=== PATIENT | female | born 1940 | race Caucasian/White ===

== ENCOUNTER 2020-06-18 21:48 | Observation (INO) | payer MEDICARE, SELFPAY ==
--- NOTE | ~2020-06-18 | XR_ITS ---
EXAMINATION: XR knee RT 3V DATE: 06/18/2020 23:01 INDICATION: Right knee pain after fall, initial encounter TECHNIQUE: Three views of the right knee were obtained. COMPARISON: 06/14/2011 FINDINGS: There is a chronic moth-eaten appearance of the bones. A large knee joint effusion is prese nt. There appears to be an acute, traumatic, closed fracture involving the lateral condyle of the dis josie femur. Calcified atherosclerosis is noted. IMPRESSION: 1. Likely acute lateral condyle fracture of the distal femur with large knee joint effusion. 2. Widespread moth-eaten appearance of the bones, consistent with history of multiple myeloma. Reviewed, dictated and finalized at location A. IMPRESSION: 1. Likely acute lateral condyle fracture of the distal femur with large knee sharif int effusion. 2. Widespread moth-eaten appearance of the bones, consistent with history of mu ltiple myeloma.
--- NOTE | ~2020-06-18 | XR_ITS ---
EXAMINATION: XR hip RT min 2V DATE: 06/18/2020 23:01 INDICATION: Right hip pain after fall, history of multiple myeloma TECHNIQUE: Two views of right hip were obtained. COMPARISON: 06/13/2011 FINDINGS: Again noted is a widespread moth-eaten appearance of the bones. No definite fracture is kvng ntified. Bone alignment is normal. IMPRESSION: 1. No definite fracture identified. 2. Chronic moth-eaten appearance of the bones, consistent with history of multiple myeloma. Reviewed, dictated and finalized at location A. IMPRESSION: 1. No definite fracture identified. 2. Chronic moth-eaten appearance of the bones, consistent with history of multi ple myeloma.
[2020-06-18 22:03] VITALS: PULSE 54; RESP 13; O2SAT 100
[2020-06-18 22:04] VITALS: BP 184/45; PULSE 50; RESP 16; O2SAT 100
[2020-06-18 22:05] VITALS: BP 184/45; PULSE 52; RESP 15; O2SAT 100
--- NOTE | 2020-06-18 22:14 | ED.GENADULT ---
HPI - General Adult General Chief complaint: Fall Stated complaint: FALL/R LEG PAIN/HYPOTENSIVE Source: patient History of Present Illness HPI narrative: Patient is a 80 y/o female complaining of right knee pain after she fell in the shower. She states that it happened about 1 hour ago. She describes her pain as a aching pain and rates it as 10/10. There is no pain radiation. Movement aggravates her pain. She was unable to stand after the fall. She denies hitting her head or having LOC. She denies any neck pain, back pain, chest pain or abdominal pain. Related Data Home Medications Medication Instructions Recorded Confirmed allopurinol 100 mg PO DAILY 06/18/20 06/19/20 bimatoprost [Lumigan] 0.01 % OPHTHALMIC (EYE) DAILY 06/18/20 06/19/20 lenalidomide [Revlimid] 10 mg PO DAILY 06/18/20 06/19/20 potassium chloride 20 meq PO DAILY 06/18/20 06/19/20 timolol [Betimol] 1 drp OPHTHALMIC (EYE) BID 06/18/20 06/19/20 Allergies Allergy/AdvReac Type Severity Reaction Status Date / Time No Known Allergies Allergy Unknown Verified 06/18/20 22:12 Review of Systems Constitutional: Constitutional: Denies chills, Denies fever(s), Denies headache(s) and Denies weakness Eyes: Eyes: Denies blurry vision ENT: Denies headache(s) and Denies neck pain Cardiovascular: Cardiovascular: Denies chest pain and Denies dyspnea Respiratory: Respiratory: Denies cough and Denies dyspnea Gastrointestinal: Gastrointestinal: Denies abdominal pain, Reports diarrhea, Denies nausea and Denies vomiting Genitourinary: Genitourinary: Denies hematuria and Denies dysuria Musculoskeletal: Musculoskeletal: Denies back pain, Reports arthralgias (right knee pain) and Denies neck pain Neurologic: Denies headache(s) and Denies weakness [facility] Past Medical History Medical History (Updated 06/19/20 @ 12:33 by Citlaly Lock MD) Anemia Glaucoma Gout Multiple myeloma Surgical History Surgical History (Updated 06/19/20 @ 12:28 by Ava Guillory PA-C) H/O local excision of skin lesion History of resection of small bowel Status post right breast lumpectomy Family History Family History (Updated 06/19/20 @ 12:29 by Ava Guillory PA-C) Sibling Lung cancer Sibling Lung cancer Social History Social History (Updated 06/19/20 @ 12:32 by Ava Guillory PA-C) Social History: Ms. Baum lives at home with her son, James, in [place]. 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 She denies alcohol use or other substance use. Never smoker. Her PCP is recently retired and she tells me her oncologist, Dr Júnior Knott, is taking over as her PCP for now. She designates her son, James, as her surrogate decision maker. She would like to be resuscitated if needed, however she does not wish to be on a ventilator for a long period of time, thus keeping her Full Code Status. Smoking status: Never smoker Alcohol intake: never Substance use: never Gender identity (if verbalized by the patient): Female Sexual Orientation (if Verbalized by the Patient): Straight or Heterosexual Spiritual care concerns: No Exam Const: General: no acute distress and well developed Orientation/consciousness: oriented to person, oriented to place, oriented to time and patient oriented x3 HENMT: Head: normocephalic Ears: external ears normal General nose exam: Normal external nose present Eyes: General: appearance normal, both eyes and all related structures Conjunctivae: conjunctivae normal Neck: Neck: normal visual inspection and full ROM Chest: Chest palpation & inspection: normal inspection of the chest and no tenderness Resp: Effort & Inspection: normal respiratory effort Auscultation: clear to auscultation bilaterally Cardio: Rate: bradycardic Rhythm: regular rhythm GI: GI Palp: No abdominal tenderness and Yes Soft to palpation Skin: General skin exam: normal color and turgor normal Neuro: General: oriented to perso
[2020-06-18 22:15] VITALS: PULSE 55; RESP 19; O2SAT 100
[2020-06-18 22:17] VITALS: BP 164/47; PULSE 50; RESP 18; O2SAT 100
[2020-06-18] MEDS: fentaNYL CITRATE INJ (*CRX) 100 MCG/2 ML VIAL 50 MCG IV PUSH (22:17)
[2020-06-18 23:35] LABS: Basophils Absolute Auto 0.1 K/mm3 (0.0-0.1); Basophils Percent Auto 1.5 % (0.2-1.2); Eosinophils Absolute Auto 0.1 K/mm3 (0-0.3); Eosinophils Percent Auto 2.2 % (0-4.4); Hematocrit 32.3 % (37.0-47.0); Hemoglobin 10.4 g/dL (12.0-15.0); Immature Granulocyte Absolute 0.02 K/mm3 (0.00-0.031); Immature Granulocyte Percent A 0.5 % (0-0.5); Lymphocytes Absolute Auto 0.85 K/mm3 (0.9-3.2); Lymphocytes Percent Auto 20.6 % (18.3-44.2); Mean Corpuscular HGB Conc 32.2 g/dl (32-36); Mean Corpuscular Hemoglobin 31.5 pg (26-34); Mean Corpuscular Volume 97.9 fl (80-100); Mean Platelet Volume 11.2 fl (7.4-10.4); Monocytes Absolute Auto 0.5 K/mm3 (0.1-0.6); Monocytes Percent Auto 11.4 % (2.6-8.5); Neutrophils Absolute Auto 2.6 K/mm3 (1.3-6.7); Neutrophils Percent Auto 63.8 % (45.5-73.1); Platelet Count Result 249 k/mm3 (150-375); White Blood Count 4.1 K/mm3 (4.5-10.0)
[2020-06-18 23:48] LABS: Alanine Aminotransferase 32 U/L (4-35); Albumin Level 3.2 g/dL (3.5-5.1); Alkaline Phosphatase 105 U/L (38-126); Anion Gap 4 mmol/L (8-16); Aspartate Amino Transferase 63 U/L (14-36); Bilirubin,Total 0.4 mg/dL (0.2-1.3); Blood Urea Nitrogen 35 mg/dL (7-17); Calcium 8.5 mg/dL (8.4-10.2); Carbon Dioxide 23 mmol/L (22-30); Chloride 106 mmol/L (98-107); Estimated CRCL calculation 53 ml/min; Estimated Glomerular Filt Rate > 60; Glucose 147 mg/dL (65-105); Potassium 4.3 mmol/L (3.4-5.0); Sodium 133 mmol/L (137-145)
[2020-06-19] VITALS (7 sets, daily range): BP systolic 113–178; BP diastolic 44–96; PULSE 40–91; RESP 15–21; TEMP 36.2–37; O2SAT 96–99; BMI 33.5; BMI 30.2
[2020-06-19 00:20] LABS: Add Urine Microscopic? YES; Appearance Urine Cloudy (Clear); Bacteria Urine Trace /hpf; Bilirubin Urine Negative (Negative); Blood Urine Negative (Negative); Color Urine Yellow (Yellow); Glucose Urine UA Negative (Negative); Ketones Urine Negative (Negative); Leukocyte Esterase Ur Negative LEU/UL (Negative); Mucus Urine Rare /lpf; Nitrate Urine Negative (Negative); Protein Urine 1+ mg/dL (Negative); RBC Urine 0-2 /hpf (0-2); Specific Grav Ur 1.016 (1.001-1.035); Squamous Epithelial Cell Urine Rare /hpf (Few); Urobilinogen Urine Negative mg/dL (<2.0); WBC Urine 0-3 /hpf
[2020-06-19] MEDS: HYDROcodone/acetaminophen (*CRX) 5-325 MG TABLET 1 TAB PO ×3 (00:31→19:10)
--- NOTE | 2020-06-19 01:59 | ADMGEN ---
This patient, Cristina Baum, was admitted to [facility] Surg Room 303-01. Patient/family oriented to hospital policies and general routines including ID bracelet, bed and alarms, visiting hours, pain management, procedures, bathroom and other care routines, personal items, smoking policy, room service/diet, and visiting hours. Valuables list has been completed. Information on how to activate the Rapid Response Team has been discussed. Patient/Family are encouraged to report perceived risks to care and to ask questions if they do not understand what they are told or what they should do.
[2020-06-19] MEDS: fentaNYL CITRATE INJ (*CRX) 100 MCG/2 ML VIAL 25 MCG IV PUSH (02:13)
[2020-06-19] MEDS: HYDROmorphone HCL INJ (*CRX) 1 MG/ML SYR 0.5 MG IV PUSH ×4 (10:16→17:03)
--- NOTE | 2020-06-19 10:20 | PM.IMHP ---
H&P: HPI History of Present Illness Date/Time: 06/19/20944 Chief complaint: R leg pain Narrative: Date of Service 06/19/20944 The supervising physician for this history and physical is Dr Tristan Lovelace. Ms. Baum is an 80yo F with history of multiple myeloma, anemia, glaucoma, gout presents ED for evaluation of right knee pain after a fall at home. She describes she was stepping out of the bathtub when she slipped and fell on the ledge of the tub. She then began to experience right knee/leg/hip pain and had difficulty ambulating. She lives with her son, James, who she called for help. Imaging demonstrates a likely acute lateral condyle fracture of the right distal femur with a large knee joint effusion with widespread moth-eaten appearance of the bones. She describes that she has had aching pain near her right knee for about 2 weeks now. She follows with oncology at [facility] in [place], Dr Júnior Knott, who recently ordered skeletal survey X-rays due to pain. Today, her only complaint is 10/10 right knee pain. She had some diarrhea this morning which she notes is not abnormal for her after her bowel resection 2 years ago. She denies any chest pain, shortness of breath, palpitations, or calf pain. She denies any nausea, vomiting or abdominal pain. She was admitted to the hospitalist service for right femur fracture. I have spoken with EMANUEL Hull with Dr Mario early this morning who recommends patient transfer to tertiary care for musculoskeletal oncology consultation. I have spoken with patient's oncologist's office who prefers her to transfer to [place], where she has seen Dr Lj Garza in the past. I have spoken with [facility] and Dr Eunice France has accepted the patient in transfer. Review of Systems Review of Systems: Narrative: Right knee pain 10/10, no other complaints. She describes aching in this region for the last 2 weeks. She denies chest pain, shortness of breath, cough, fever or chills at home. Denies sick contacts. No nausea, vomiting or abdominal pain. Having nonbloody loose BM today which is not uncommon for her after bowel resection. Twelve systems were reviewed with pertinent positives and negatives as per HPI. [facility] Past Medical History Medical History (Updated 06/19/20 @ 12:46 by Ava Guillory PA-C) Anemia Glaucoma Gout Multiple myeloma Surgical History Surgical History (Updated 06/19/20 @ 12:28 by Ava Guillory PA-C) H/O local excision of skin lesion History of resection of small bowel Status post right breast lumpectomy Family History Family History (Updated 06/19/20 @ 12:29 by Ava Guillory PA-C) Sibling Lung cancer Sibling Lung cancer Social History Social History (Updated 06/19/20 @ 12:32 by Ava Guillory PA-C) Social History: Ms. Baum lives at home with her son, James, in [place]. 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 She denies alcohol use or other substance use. Never smoker. Her PCP is recently retired and she tells me her oncologist, Dr Júnior Knott, is taking over as her PCP for now. She designates her son, James, as her surrogate decision maker. She would like to be resuscitated if needed, however she does not wish to be on a ventilator for a long period of time, thus keeping her Full Code Status. Smoking status: Never smoker Alcohol intake: never Substance use: never Gender identity (if verbalized by the patient): Female Sexual Orientation (if Verbalized by the Patient): Straight or Heterosexual Spiritual care concerns: No Meds Home Medications and Allergies Home Medications Medication Instructions Recorded Confirmed Type allopurinol 100 mg PO DAILY 06/18/20 06/19/20 History bimatoprost [Lumigan] 0.01 % OPHTHALMIC (EYE) DAILY 06/18/20 06/19/20 History lenalidomide [Revlimid] 10 mg PO DAILY 06/18/20 06/19/20 History potassium chloride 20 meq PO DAILY 06/18/20 06/19/20 History timolol [Bet
--- NOTE | 2020-06-19 12:54 | PM.TDS ---
Transfer Discharge Sum: Prov Provider Date of admission: 06/19/20 00:27 Primary care physician: PHYSICIAN NOT ON STAFF Admitting clinician: Luz Maria Montiel DO Consults: 06/19/20 00:29 Consult to Physician Routine Comment: Consulting Provider: Ernesto Mario Reason for consultation: right distal femur fracture Has provider been notified: Yes DS: Admitting Diagnosis Admitting Diagnosis Admitting Diagnosis: R leg pain DS: Discharge Diagnosis Discharge Diagnosis (1) Closed fracture of lateral condyle of distal end of right femur: Qualifiers: Encounter type: initial encounter Fracture alignment: nondisplaced Qualified Code(s): S72.424A - Nondisplaced fracture of lateral condyle of right femur, initial encounter for closed fracture Code(s): S72.421A - Displaced fracture of lateral condyle of right femur, initial encounter for closed fracture Status: Acute Assessment and Plan: Date of Service 06/19/20 0945 Ms. Baum is an 80yo F with history of multiple myeloma diagnosed in 2010, anemia, glaucoma, gout, history of right breast cancer in 2017, presents ED for evaluation of right knee pain after a fall at home. She describes she was stepping out of the bathtub when she slipped and fell on the ledge of the tub. She then began to experience right knee/leg/hip pain and had difficulty ambulating. She lives with her son, James, who she called for help. Imaging demonstrates a likely acute lateral condyle fracture of the right distal femur with a large knee joint effusion with widespread moth-eaten appearance of the bones. She describes that she has had aching pain near her right knee for about 2 weeks now. She follows with oncology at [facility] in [place], Dr Júnior Knott, who recently ordered skeletal survey X-rays due to pain. Today, her only complaint is 10/10 right knee pain. She had some diarrhea this morning which she notes is not abnormal for her after her bowel resection 2 years ago. She denies any chest pain, shortness of breath, palpitations, or calf pain. No cough, fevers/chills, or sick contacts. She denies any nausea, vomiting or abdominal pain. She was admitted to the hospitalist service for right femur fracture. I have spoken with EMANUEL Hull with Dr Mario early this morning who recommends patient transfer to tertiary care for musculoskeletal oncology consultation. I have spoken with patient's oncologist's office who prefers her to transfer to [place], where she has seen Dr Lj Garza in the past. I have spoken with [facility] and Dr Eunice France has accepted the patient in transfer. She is hemodynamically stable for transfer today. Last Vital Signs Temp 97.2 F L 06/19/20 12:00 Pulse 45 L 06/19/20 12:00 Resp 18 06/19/20 12:00 BP 152/45 H 06/19/20 12:00 Pulse Ox 96 06/19/20 12:00 Patient presents with right knee pain after slipping in the bathtub 06/18 at home. Imaging shows what is likely an acute lateral condyle fracture of the right distal femur with large knee joint effusion, with widespread moth-eaten appearance of the bones. Discussed case with EMANUEL Hull with Dr Mario who has reviewed the imaging and recommends transfer to tertiary care. Appreciate input. Plan is for transfer to [place]. Dr Eunice France, [facility] oncology, has accepted the patient in transfer pending bed availability. (2) Multiple myeloma: Qualifiers: Multiple myeloma remission status: unspecified Qualified Code(s): C90.00 - Multiple myeloma not having achieved remission Code(s): C90.00 - Multiple myeloma not having achieved remission Status: Chronic Assessment and Plan: Diagnosed in 05/2011. Her oncologist is Dr Júnior Knott at [facility]. I've spoken with their office this morning for updates. Continue her home Revlimid if can be brought from home.
[2020-06-19] MEDS: allopurinoL 100 MG TABLET PO (15:31)
--- NOTE | 2020-06-19 17:01 | PHAR ---
Home medication Revlimid 10mg capsules idenfied in pharmacy and returened to 3medsurg unit
[2020-06-19] MEDS: TIMOLOL MALEATE 0.5% OP SOLN 5 ML BOTTLE 1 DROP EACH EYE (17:14)
--- NOTE | 2020-06-19 19:46 | PC.NURSE ---
SENT PT TO [facility] PER AMBULANCE WITH PATENT , CLEAN IV SITE CLEAN
== END 2020-06-19 19:15 | disposition short-term general hospital (02) ==
LOC: ANHED 23:29 → ANH3MEDSUR 06-19 01:47
PROVIDERS: Admitting Provider Internal Medicine; Emergency Provider Emergency Medicine; Visit Provider Family Medicine
DX: S72.421A Displaced fracture of lateral condyle of right femur, initial encounter for closed fracture (principal); M25.552 Pain in left hip; M25.461 Effusion, right knee; W18.2XXA Fall in (into) shower or empty bathtub, initial encounter; C90.00 Multiple myeloma not having achieved remission; R00.1 Bradycardia, unspecified; M10.9 Gout, unspecified; H40.9 Unspecified glaucoma; Z85.3 Personal history of malignant neoplasm of breast; Z90.49 Acquired absence of other specified parts of digestive tract
CPT/HCPCS: 36415; 73502; 73562; 80053; 81001; 85025; 96374; 96375; 96376; 99285; A9270; G0378; J1170; J3010

== ENCOUNTER 2020-07-21 11:32 | Outpatient (CLI) | payer MEDICARE, SELFPAY ==
--- NOTE | ~2020-07-21 | XR_ITS ---
EXAMINATION: XR foot RT min 3V EXAM DATE: 07/21/2020 12:02 INDICATION: Right-sided pain. Rule out fracture. Pain on plantar aspect. TECHNIQUE: Right foot dorsoplantar, lateral and oblique projections obtained and reviewed. Right ank le frontal, lateral and oblique projections obtained and reviewed. There is no prior study for tawanna lópez. FINDINGS: There is moderate polyarticular right tarsal primary osteoarthritis. No periosteal reactio n or band of sclerosis to suggest subacute stress fracture. There are no bony erosions identified. Th ere are no acute fractures or dislocations identified. There is no subcutaneous gas. There may be s ome swelling over the forefoot. There are no radiopaque foreign bodies. IMPRESSION: 1. XR foot RT min 3V exam without acute osseous findings. 2. Moderate polyarticular midfoot osteoarthritis. Reviewed, dictated and finalized at location A.
== END 2020-07-21 11:33 | disposition home or self-care (01) ==
DX: M79.604 Pain in right leg (principal); M19.071 Primary osteoarthritis, right ankle and foot
CPT/HCPCS: 73630

== ENCOUNTER 2020-10-27 14:24 | Outpatient (CLI) | payer MEDICARE, SELFPAY ==
--- NOTE | ~2020-10-27 | XR_ITS ---
XR wrist RT min 3V DATE: 10/27/2020 14:48 INDICATION: Right wrist pain TECHNIQUE: 4 views COMPARISON: 07/02/2018 right third digit FINDINGS: There is chondrocalcinosis at the triangular cartilage. No fracture, dislocation, periosteal reaction or bone destruction is noted at the right wrist. There is polyarticular osteoarthritis involving particularly the first metatarsophalangeal and multip le interphalangeal joints, with erosive changes noted at the proximal interphalangeal joints of the t hird through fifth digits. 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 GER AREA
== END 2020-10-27 14:25 | disposition home or self-care (01) ==
DX: C50.111 Malignant neoplasm of central portion of right female breast (principal); C90.00 Multiple myeloma not having achieved remission; M19.031 Primary osteoarthritis, right wrist
CPT/HCPCS: 73110

== ENCOUNTER 2021-03-04 17:14 | Emergency (ER) | payer MEDICARE, SELFPAY ==
--- NOTE | ~2021-03-04 | XR_ITS ---
EXAMINATION: XR hand RT min 3V DATE: 03/04/2021 17:46 INDICATION: Erythema and swelling at the right fifth digit and metacarpal. TECHNIQUE: Posteroanterior, oblique and lateral views of the right hand were obtained. COMPARISON: Right wrist radiographs dated 10/27/2020 FINDINGS: No fracture. Again seen is advanced polyarticular osteoarthritis at the first interphalangeal, third- fifth proximal interphalangeal and second and third distal interphalangeal joints with prominent eros oksana changes. There is secondary slight varus angulation at the third-fifth proximal interphalangeal j oints resulting from the erosions. Alignment is otherwise normal. Additional mild to moderate polyart icular osteoarthritis at the right wrist, triscaphe, first carpometacarpal and remaining metacarpopha langeal and interphalangeal joints. Although several of the erosions are central, many are juxta-radha cular with sclerotic margins and some with overhanging edges which can be seen in the setting of gout . This includes at the head of the fifth proximal phalanx where there is prominent surrounding soft t issue swelling. IMPRESSION: 1. 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 Reviewed, dictated and finalized at location A. IMPRESSION: 1. 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
[2021-03-04 17:25] VITALS: BP 168/62; PULSE 40; RESP 18; TEMP 37; O2SAT 100
--- NOTE | 2021-03-04 17:30 | ED.EXTPRO ---
HPI - Extremity Problem General Chief complaint: Extremity Problem,Nontraumatic Stated complaint: Right Hand Pain Source: patient and RN notes reviewed Limitations: no limitations History of Present Illness HPI Narrative: The patient, who is right-handed and walks with a walker, presents with right finger pain. Patient states she has a prior history of gout in her left thumb, and now has a history of atraumatic right MCPJ pain and swelling especially on flexor aspect, that she attributes to leaning over using her walker. No redness, known injury Related Data Home Medications Medication Instructions Recorded Confirmed allopurinol 300 mg PO DAILY 06/18/20 03/04/21 bimatoprost [Lumigan] 0.01 % OPHTHALMIC (EYE) DAILY 06/18/20 03/04/21 lenalidomide [Revlimid] 10 mg PO DAILY 06/18/20 03/04/21 timolol [Betimol] 1 drp OPHTHALMIC (EYE) BID 06/18/20 03/04/21 Allergies Allergy/AdvReac Type Severity Reaction Status Date / Time No Known Allergies Allergy Unknown Verified 06/18/20 22:12 Review of Systems Review of Systems: Narrative: General/Constitutional: No weight loss,fever Eyes: N0: Redness,discharge Ears/Nose/Throat: No: Epistaxis,ear discharge Respiratory: Denies: Hemoptysis Gastrointestinal: No Vomiting, Bleeding-rectal Skin: No Lumps, eruption Neurologic: No Focal Weakness,Sz Hematologic: Denies: Petechiae/Purpura Psychiatric: No: Suicida ideationl All Other Systems: Reviewed and Negative [facility] Past Medical History Medical History (Updated 03/04/21 @ 18:33 by Shane Vang MD) Anemia Glaucoma Gout Multiple myeloma Surgical History Surgical History (Updated 06/19/20 @ 12:28 by Ava Guillory PA-C) H/O local excision of skin lesion History of resection of small bowel Status post right breast lumpectomy Family History Family History (Updated 06/19/20 @ 12:29 by Ava Guillory PA-C) Sibling Lung cancer Sibling Lung cancer Social History Social History (Updated 06/19/20 @ 12:32 by Ava Guillory PA-C) Social History: Ms. Baum lives at home with her son, James, in [place]. 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 She denies alcohol use or other substance use. Never smoker. Her PCP is recently retired and she tells me her oncologist, Dr Júnior Knott, is taking over as her PCP for now. She designates her son, James, as her surrogate decision maker. She would like to be resuscitated if needed, however she does not wish to be on a ventilator for a long period of time, thus keeping her Full Code Status. Smoking status: Never smoker Alcohol intake: never Substance use: never Gender identity (if verbalized by the patient): Female Spiritual care concerns: No Comments At time of signature, agree with nursing past medical, surgical, social and family history. There is no relevant family history pertinent to the presenting complaint Exam Narrative: Exam Narrative: General Appearance: Well appearing, Well nourished, No distress, Conjunctiva clear Mouth/Throat: Normal appearing, Normal lipsk: Supple Respiratory: Airway patent, No respiratory distress MS-hand: Normal strength (mostly intact, limited flexion/extension by pain), Tenderness ( laterally, with mild decreased ROM), Swelling (laterally), Other (no anterior drawer, no collateral laxity, no Achilles tenderness, no fifth MT tenderness) Skin: Warm, Dry, Normal color Neurological: A&O x3, Speech clear, CN II-XII intact Psychiatric: Normal mood, Normal affect Course Vital Signs Vital signs: Vital Signs Temperature 98.6 F 03/04/21 17:25 Pulse Rate 40 L 03/04/21 17:25 Respiratory Rate 18 03/04/21 17:25 Blood Pressure 168/62 H 03/04/21 17:25 Pulse Oximetry 100 03/04/21 17:25 Temperature 98.6 F 03/04/21 17:25 Pulse Rate 40 L 03/04/21 17:25 Respiratory Rate 18 03/04/21 17:25 Blood Pressure 168/62 H 03/04/21 17:25 Pulse Oximetry 100 03/04/21 17:25
[2021-03-04] MEDS: predniSONE 20 MG TABLET 60 MG PO (18:09)
== END 2021-03-04 18:36 | disposition home or self-care (01) ==
PROVIDERS: Emergency Provider Emergency Medicine
DX: M77.8 Other enthesopathies, not elsewhere classified (principal); H40.9 Unspecified glaucoma; M10.9 Gout, unspecified; Z85.79 Personal history of other malignant neoplasms of lymphoid, hematopoietic and related tissues
CPT/HCPCS: 29125; 73130; 99213; G0463; J7512

== ENCOUNTER 2022-03-26 16:58 | Outpatient (CLI) | payer MEDICARE, SELFPAY ==
--- NOTE | ~2022-03-26 | XR_ITS ---
EXAM: XR shoulder RT min 2V DATE: 03/26/2022 17:42 HISTORY: Malignant neoplasm of central portion of RT female breast . COMPARISON: None available. FINDINGS: Severely decreased mineralization. Numerous lytic bone lesions. Fracture of the proximal r ight clavicular shaft, with one half shaft width inferior displacement of the distal fragment. There appears to be a rounded intramedullary lucency at the fracture site. IMPRESSION: Mildly displaced, possibly pathologic right proximal clavicular fracture.. Reviewed, dictated and finalized at location K. IMPRESSION: Mildly displaced, possibly pathologic right proximal clavicular fra cture..
== END 2022-03-26 16:59 | disposition home or self-care (01) ==
DX: C50.111 Malignant neoplasm of central portion of right female breast (principal); C90.00 Multiple myeloma not having achieved remission; C79.51 Secondary malignant neoplasm of bone; S42.001A Fracture of unspecified part of right clavicle, initial encounter for closed fracture; N39.0 Urinary tract infection, site not specified
CPT/HCPCS: 73030